=== PATIENT | female | born 1945 | race Caucasian/White ===

== ENCOUNTER → 2017-01-29 | Outpatient (CLI) | payer OTHER ==
[~2017-01-29] MED LIST: ASPIRINBUFF PO; BENZONATATE PO; BP PILL; CALCIUM 600 +1 EAC4 PO; FISH OIL 1,001000 M2 PO; LIPITOR PO; LORTAB 5/500 TA1 TA1 PO; TRIAMTERENE-HC1 EAC1 PO; TRIAMTERENE-HCT1 TA6 PO; VITAMIN D1000 UNIT PO
--- NOTE | ~2017-01-29 | MY29 ---
[facility] A Service of [facility] RADIOLOGY TEXT RESULTS PATIENT: SHUKRI ALBERT LOCATION: [facility] : 44 UNIT #: [id number] AGE: [address]: Estephanie Loredo MD SEX: F ORDER DR: [id number] [facility] [address] [place], [place] [address] [id number] O MR#: [id number] Acc #: [id number] NAME: SHUKRI ALBERT. : 1945 SEX: F STUDY DATE/TIME: 01/29/2017 11:06 UNIT: [facility] ROOM: STUDY DESCRIPTION: MY MOOSE SCREENING W/ CAD BILAT Attending Physician: Estephanie Loredo M.D. Ordering Physician: Estephanie Loredo M.D. Primary Care Physician: Estephanie Loredo M.D. MEDICAL IMAGING REPORT This report is preliminary unless electronic signature is present EXAM Digital screening mammogram 01/29/2017, [facility] HISTORY 71-year-old woman no risk elevation. Annual screen. COMPARISON Outside mammograms from [facility] date to 05/15/2007 with most recent comparison 12/19/2015 FINDINGS Digital imaging of each breast was completed utilizing screening protocol. Review includes FDA-approved CAD device. Breast parenchyma is dense and somewhat heterogeneous with small nodular parenchymal pattern and subareolar duct prominence in each breast. A focal area of oval dominance present in the 12 o'clock axis right breast anterior third is documented on all prior mammograms dating back to a film screen image 05/15/2007. This does not image on craniocaudal views, resulting from its deep position on craniocaudal compression. It does appear somewhat more dense on our current study and therefore further characterization is recommended. This should include a true lateral projection with exaggerated craniocaudal views and targeted ultrasound. I see no architectural disturbance and no suspicious microcalcifications. IMPRESSION Incomplete mammographic evaluation. Additional right breast imaging is recommended. See complete report with recommendations. Patient's over the age of 40 are entered into a reminder system with target due date for the next mammogram. A result letter will be sent to the patient. [facility] A Service of [facility] RADIOLOGY TEXT RESULTS PATIENT: SHUKRI ALBERT LOCATION: [facility] : 44 UNIT #: [id number] AGE: [address]: Estephanie Loredo MD SEX: F ORDER DR: BIRADS: 0 Needs additional imaging evaluate and/or prior mammograms for comparison. Additional right breast imaging recommended. Dictated by... Naveen Leyva M.D. THIS IS AN ELECTRONICALLY VERIFIED REPORT Naveen Leyva M.D. at 01/30/2017 2:50 PM JBB/meredith TD: 01/30/2017 14:16 JOB #: [id number] MEDICAL IMAGING REPORT Page 1 of 1 COPY
== END | disposition home or self-care (01) ==
LOC: CWCC 10:45
DX: Z12.31 Encounter for screening mammogram for malignant neoplasm of breast (principal); R92.8 Other abnormal and inconclusive findings on diagnostic imaging of breast
CPT/HCPCS: G0202

== ENCOUNTER → 2017-02-12 | Outpatient (CLI) | payer OTHER ==
--- NOTE | ~2017-02-12 | MY25 ---
[facility] A Service of [facility] RADIOLOGY TEXT RESULTS PATIENT: SHUKRI ALBERT LOCATION: [facility] : 43 UNIT #: [id number] AGE: [address]: Estephanie Loredo MD SEX: F ORDER DR: [id number] [place], [place] [address] [id number] O MR#: [id number] Acc #: [id number] NAME: SHUKRI ALBERT. : 1945 SEX: F STUDY DATE/TIME: 02/12/2017 12:38 UNIT: [facility] ROOM: STUDY DESCRIPTION: [place] MOOSE ROJAS W/ CAD UNI RT Attending Physician: Estephanie Loredo M.D. Referring Physician: Estephanie Loredo M.D. Ordering Physician: Estephanie Loredo M.D. Primary Care Physician: Estephanie Loredo M.D. MEDICAL IMAGING REPORT This report is preliminary unless electronic signature is present EXAM Right digital diagnostic mammogram INDICATION Right breast asymmetry on screening mammogram. Observation for right breast mass. PROCEDURE True lateral view of the right breast. Spot compression view of the right breast in the true lateral projection and rolled medial and lateral views in the CC projection. COMPARISON Screening mammogram from 01/29/2017 and outside screening mammogram performed at [facility] on 10/26/2013. FINDINGS Scattered fibroglandular density in the right breast. There is an area of asymmetric breast tissue in the upper right breast. This is unchanged in appearance from the 2014 study. There is no dominant mass or suspicious calcification. IMPRESSION Benign right digital diagnostic mammogram. Recommend patient continue with yearly screening. Patients over the age of 40 are entered into a reminder system with target due date for the next mammogram. A result letter will also be sent to the patient. BIRADS: 2 Benign Finding Dictated by... [facility] A Service of [facility] RADIOLOGY TEXT RESULTS PATIENT: SHUKRI ALBERT LOCATION: [facility] : 43 UNIT #: [id number] AGE: [address]: Estephanie Loredo MD SEX: F ORDER DR: Fermín Carlos M.D. THIS IS AN ELECTRONICALLY VERIFIED REPORT Fermín Carlos M.D. at 02/13/2017 7:12 AM Kimberley TD: 02/12/2017 18:06 JOB #: [id number] MEDICAL IMAGING REPORT Page 1 of 1 COPY
== END | disposition home or self-care (01) ==
LOC: CMAM 11:58
DX: R92.8 Other abnormal and inconclusive findings on diagnostic imaging of breast (principal)
CPT/HCPCS: G0206

== ENCOUNTER → 2017-04-01 | Day surgery (SDC) | payer OTHER ==
--- NOTE | ~2017-04-01 | OR ---
Unit #: [id number] #: [id number] Patient: SHUKRI ALBERT [id number] [address] [address] [id number] O MR#: [id number] NAME: SHUKRI ALBERT. ROOM: Date of Procedure: 04/01/2017 Admission Date: 04/01/2017 Surgeon: Herber Suárez M.D. : 1945 Attending Physician: Herber Suárez M.D. Primary Care Physician: Estephanie Loredo M.D. OPERATIVE REPORT PRIMARY CARE PHYSICIAN Estephanie Loredo M.D. PREOPERATIVE DIAGNOSIS Colorectal cancer screening. PROCEDURES PERFORMED Colonoscopy and polypectomy. POSTOPERATIVE DIAGNOSES 1. The patient had two sessile polyps in the distal transverse colon adjacent to splenic flexure. Both were removed using snare cautery polypectomy. The polyps were 8 mm and 1.5 cm each sessile and located adjacent to each other. 2. Mild sigmoid and descending colon diverticulosis. 3. Rest of the examination up to cecum was normal. The quality of the prep was good. RECOMMENDATIONS 1. Follow up the results of polyp histology. 2. Consider repeat colonoscopy in 5 years. SEDATION USED MAC. DESCRIPTION OF PROCEDURE Following detailed explanation of the potential risks and complications of a colonoscopy, namely perforation, bleeding, and complication related to sedation, the patient was brought to GI lab and laid in the left lateral decubitus position. A digital rectal examination was performed, which was normal. Lubricated tip of the Olympus video colonoscope was inserted through the anus and advanced under direct vision. The scope was advanced past rectosigmoid into descending colon. Scant small diverticula were noted in this area. The scope tip was then navigated all the way up to cecum with visualization of the ileocecal valve and the appendiceal orifice. Preparation was excellent with good visualization and photodocumentation was obtained. Successive segments of the colonic mucosa were examined upon withdrawal. Two sessile polyps were noted in the distal transverse colon. These were 8 mm and 1.5 cm each. Both were removed using snare cautery polypectomy. They were retrieved and sent for histology. No additional polyps were noted. Other than the scant diverticula seen in the sigmoid, no other abnormalities were noted. The Unit #: [id number] #: [id number] Patient: SHUKRI ALBERT patient did not have any hemorrhoids at the anal verge. The scope was then withdrawn and the patient returned to the recovery area. She tolerated the procedure without any postprocedure complications. Dictated by.Naomi Petersen/hiral TD: 04/01/2017 10:55 JOB #: [id number] CC: Estephanie Loredo M.D. OPERATIVE REPORT Page 1 of 1 X Herber Suárez MD X PROCEDURE OPERATIVE NOTE
== END | disposition home or self-care (01) ==
LOC: COPS 07:00
DX: Z12.11 Encounter for screening for malignant neoplasm of colon (principal); K63.5 Polyp of colon; K57.30 Diverticulosis of large intestine without perforation or abscess without bleeding; I10 Essential (primary) hypertension; E78.5 Hyperlipidemia, unspecified; J44.9 Chronic obstructive pulmonary disease, unspecified; F17.200 Nicotine dependence, unspecified, uncomplicated; Z79.899 Other long term (current) drug therapy; Z90.710 Acquired absence of both cervix and uterus
CPT/HCPCS: 88305